=== PATIENT | female | born 1985 | race Two or more races ===

== ENCOUNTER 2018-03-23 23:25 | Emergency (ER) | payer BC ==
[~2018-03-23] VITALS: Ht 160 cm; Wt 61.2 kg
[2018-03-24 00:07] LABS: BASOPHILS # (AUTO) 0.05 x10^3/uL (0-0.1); BASOPHILS % (AUTO) 1 % (0-1); EOSINOPHILS # (AUTO) 0.29 x10^3/uL (0-0.4); EOSINOPHILS % (AUTO) 6 % (1-7); LYMPHOCYTES # (AUTO) 2.28 x10^3/uL (1-3.4); LYMPHOCYTES % (AUTO) 45 % (22-44); MD NO; MEAN CORPUSCULAR HEMOGLOBIN 29.3 pg (27.0-34.8); MEAN CORPUSCULAR VOLUME 88.8 fL (80-100); MEAN PLATELET VOLUME 8.2 fL (7.4-10.4); MONOCYTES # (AUTO) 0.54 x10^3/uL (0.2-0.8); MONOCYTES % (AUTO) 11 % (2-9); NEUTROPHILS # (AUTO) 1.87 x10^3/uL (1.8-6.8); NEUTROPHILS % (AUTO) 37 % (42-75); PLATELET COUNT 321 x10^3/uL (130-400); RED BLOOD COUNT 4.28 x10^6/uL (3.82-5.3); RED CELL DISTRIBUTION WIDTH 13.2 % (9.6-15.2)
[2018-03-24 00:19] LABS: ALBUMIN 3.4 g/dL (3.4-5.0); ANION GAP 9 mmol/L (5-15); CALCIUM 8.2 mg/dL (8.5-10.1); CHLORIDE 109 mmol/L (98-107); CREATININE 0.63 mg/dL (0.55-1.02)
[2018-03-24 00:23] LABS: TROPONIN I < 0.015 ng/mL (0.000-0.045)
[2018-03-24 00:50] VITALS: BP 113/72
== END 2018-03-24 00:52 | disposition home or self-care (01) ==
LOC: ED 03-24 00:46
DX: R07.89 Other chest pain (principal); R00.2 Palpitations; R05 Cough; F41.1 Generalized anxiety disorder; Z88.0 Allergy status to penicillin
CPT/HCPCS: 36415; 71046; 80048; 82040; 84484; 85025; 93005; 99284